=== PATIENT | female | born 1990 | race American Indian/Alaskan Native ===

== ENCOUNTER 2017-01-06 09:20 | Emergency (ER) | payer OTHER ==
[2017-01-06 09:31] VITALS: BMI 23.1
[2017-01-06 09:36] VITALS: TEMP 97.8
--- NOTE | 2017-01-06 10:17 | C.PDOC ---
Time Seen by Provider: 01/06/17 09:53 Chief Complaint (Nursing): GI Problem History Per: Patient Onset/Duration Of Symptoms: Days (2) Current Symptoms Are (Timing): Still Present Sick Contacts (Context): Family Member(s) (Daughter) Associated Symptoms: Myalgias, Diarrhea Severity: Moderate Recent travel outside of the [place]: No Additional History Per: Prior Records Past Medical History Reviewed: Historical Data, Nursing Documentation, Vital Signs Vital Signs: Last Vital Signs Temp 97.8 F 01/06/17 09:31 Pulse 73 01/06/17 09:31 Resp 18 01/06/17 09:31 BP 101/68 01/06/17 09:31 Pulse Ox 100 01/06/17 10:17 - Medical History PMH: No Chronic Diseases Surgical History: No Surg Hx Family History: States: Unknown Family Hx - Social History Hx Tobacco Use: No Hx Alcohol Use: No Hx Substance Use: No - Immunization History Hx Tetanus Toxoid Vaccination: No Hx Influenza Vaccination: Yes Hx Pneumococcal Vaccination: No Review Of Systems Except As Marked, All Systems Reviewed And Found Negative. Constitutional: Negative for: Fever, Weakness ENT: Negative for: Nose Congestion, Throat Pain Cardiovascular: Negative for: Chest Pain Respiratory: Negative for: Cough, Shortness of Breath Gastrointestinal: Positive for: Nausea, Diarrhea. Negative for: Vomiting, Abdominal Pain, Melena, Hematochezia, Hematemesis Genitourinary: Negative for: Dysuria Musculoskeletal: Negative for: Neck Pain, Back Pain Skin: Negative for: Rash Neurological: Negative for: Weakness, Numbness, Seizures, Altered Mental Status Physical Exam - Physical Exam Appears: Non-toxic, No Acute Distress Skin: Normal Color, Warm, Dry, No Rash Head: Atraumatic, Normacephalic Eye(s): bilateral: Normal Inspection, PERRL, EOMI Oral Mucosa: Moist Neck: Normal ROM, Supple Cardiovascular: Rhythm Regular Respiratory: Normal Breath Sounds, No Accessory Muscle Use Gastrointestinal/Abdominal: Soft, No Tenderness, No Distention Back: No CVA Tenderness Extremity: Normal ROM Neurological/Psych: Oriented x3, Normal Speech, Normal Cognition, Normal Motor, Normal Sensation ED Course And Treatment O2 Sat by Pulse Oximetry: 100 Pulse Ox Interpretation: Normal Progress Note: Pt feels much better and wants to go home. Reassessment Condition: Improved Disposition Counseled Patient/Family Regarding: Diagnosis, Need For Followup, Rx Given - Disposition Referrals: Fortino Pena MD [Staff Provider] - Disposition: HOME/ ROUTINE Disposition Time: 11:28 Condition: IMPROVED Additional Instructions: Drink plenty of fluids (Gatorade). Follow up with your doctor this week. Return to the ER if you develop vomiting, abdominal pain, fever, bloody stools, worsening of symptoms or if you have any other concerns. Prescriptions: Bismuth Subsalicylate [Pepto Bismol] 2 tab PO Q1 PRN #16 ctb PRN Reason: Diarrhea Instructions: Acute Diarrhea (ED) - Clinical Impression Clinical Impression: Diarrhea
[2017-01-06 11:33] VITALS: BP 115/76; PULSE 81; RESP 16; O2SAT 98
== END 2017-01-06 11:32 | disposition home or self-care (01) ==
LOC: C.ER 09:20
DX: R19.7 Diarrhea, unspecified (principal)

== ENCOUNTER 2017-01-27 09:06 | Emergency (ER) | payer OTHER ==
[2017-01-27 09:06] VITALS: BMI 23.1
[2017-01-27 09:26] VITALS: PULSE 74; RESP 18; TEMP 98.3; O2SAT 99
[2017-01-27 10:21] VITALS: BP 102/65
--- NOTE | 2017-01-27 11:49 | C.PDOC ---
History Of Present Illness 26 year old female presents to the ED with complaints of a sore throat, subjective fever, and dry cough for the past 3 days. Patient states it is difficult to swallow and denies chest pain, SOB, sick contact, or any other complaints at this time. Chief Complaint (Nursing): ENT Problem History Per: Patient History/Exam Limitations: no limitations Onset/Duration Of Symptoms: Days Current Symptoms Are (Timing): Still Present Location Of Pain: Throat Sick Contacts (Context): None Associated Symptoms: Fever, Sore Throat, Cough. denies: Sputum, Nasal Congestion, Nausea, Vomiting Ear Symptoms: Bilateral: None Severity: Mild Past Medical History Reviewed: Historical Data, Nursing Documentation, Vital Signs Vital Signs: Last Vital Signs Temp 98.3 F 01/27/17 09:23 Pulse 74 01/27/17 09:23 Resp 18 01/27/17 09:23 BP 102/65 01/27/17 10:20 Pulse Ox 99 01/27/17 11:53 - Medical History PMH: No Chronic Diseases Family History: States: Unknown Family Hx - Social History Hx Tobacco Use: No Hx Alcohol Use: No Hx Substance Use: No - Immunization History Hx Tetanus Toxoid Vaccination: No Hx Influenza Vaccination: Yes Hx Pneumococcal Vaccination: No Review Of Systems Except As Marked, All Systems Reviewed And Found Negative. Constitutional: Positive for: Fever ENT: Positive for: Throat Pain. Negative for: Ear Pain, Nose Congestion Cardiovascular: Negative for: Chest Pain Respiratory: Positive for: Cough. Negative for: Shortness of Breath, Sputum Gastrointestinal: Negative for: Vomiting Physical Exam - Physical Exam Appears: Non-toxic, No Acute Distress Skin: Normal Color, Warm, Dry Head: Atraumatic, Normacephalic Eye(s): bilateral: Normal Inspection Ear(s): Bilateral: Normal Nose: Normal, No Discharge Oral Mucosa: Moist Throat: Erythema, Exudate (+Mild exudate to the right tonsil), No Drooling Neck: Supple Lymphatic: Adenopathy (+Right lymphadenopathy) Chest: Symmetrical, No Deformity Cardiovascular: Rhythm Regular Respiratory: Normal Breath Sounds, No Accessory Muscle Use, No Rales, No Rhonchi , No Wheezing Extremity: Normal ROM Neurological/Psych: Oriented x3, Normal Speech, Normal Cognition ED Course And Treatment O2 Sat by Pulse Oximetry: 99 (Room air) Pulse Ox Interpretation: Normal Progress Note: Rx given and patient advised outpatient follow up. Disposition - Disposition Referrals: [facility] Connie Soraya, [Non-Staff] - Disposition: HOME/ ROUTINE Disposition Time: 10:00 Condition: GOOD Additional Instructions: Thank you for letting us take care of you today. Your provider was Dr. Farfan. You were treated for pharyngitis. The emergency medical care you received today was directed at your acute symptoms. If you were prescribed any medication, please fill it and take as directed. It may take several days for your symptoms to resolve. Return to the Emergency Department if your symptoms worsen, do not improve, or if you have any other problems. Please contact your doctor or call one of the physicians/clinics you have been referred to that are listed on the Patient Visit Information form that is included in your discharge packet. Bring any paperwork you were given at discharge with you along with any medications you are taking to your follow up visit. Our treatment cannot replace ongoing medical care by a primary care provider (PCP) outside of the emergency department. Thank you for allowing the [facility] team to be part of your care today. Follow up with your doctor in 2-3 days to be re-evaluated. Prescriptions: Ibuprofen [Motrin] 600 mg PO Q6 PRN #20 tab PRN Reason: Pain, Moderate (4-7) Azithromycin [Zithromax] 250 mg PO DAILY #6 tab Instructions: Pharyngitis (ED) Forms: Work Excuse - Clinical Impression Clinical Impression: Pharyngitis - Scribe Statement The provider has reviewed the documentation as recorded by the Scribe Daja Boyd. Provider Attestation: All medical record entries made by the Scribe were at my direction and personally dictated by me. I have reviewed the chart and agree that the record accurately reflects my personal performance of the history, physical exam, medical decision making, and the department course for this patient. I have also personally directed, reviewed, and agree with the discharge instructions and disposition.
== END 2017-01-27 10:22 | disposition home or self-care (01) ==
LOC: C.ER 09:06
DX: J02.9 Acute pharyngitis, unspecified (principal)

== ENCOUNTER 2017-02-07 10:46 | Emergency (ER) | payer OTHER ==
[2017-02-07 10:46] VITALS: BMI 23.1
[2017-02-07 10:58] VITALS: BP 101/67; PULSE 70; RESP 16; TEMP 98; O2SAT 100
--- NOTE | 2017-02-07 11:25 | C.PDOC ---
History Of Present Illness Pt c/o left lower back pain. Denies injury. Time Seen by Provider: 02/07/17 10:59 Chief Complaint (Nursing): Back Pain History Per: Patient Onset/Duration Of Symptoms: Days (2) Current Symptoms Are (Timing): Still Present Quality Of Discomfort: "Pain" Severity: Moderate Associated Symptoms: None Exacerbating Factor(s): Turning, Movement Additional History Per: Prior Records Past Medical History Reviewed: Historical Data, Nursing Documentation, Vital Signs Vital Signs: Last Vital Signs Temp 98.0 F 02/07/17 10:55 Pulse 70 02/07/17 10:55 Resp 16 02/07/17 10:55 BP 101/67 02/07/17 10:55 Pulse Ox 100 02/07/17 11:26 - Medical History PMH: No Chronic Diseases Surgical History: No Surg Hx Family History: States: Unknown Family Hx - Social History Hx Tobacco Use: No Hx Alcohol Use: No Hx Substance Use: No - Immunization History Hx Tetanus Toxoid Vaccination: No Hx Influenza Vaccination: Yes Hx Pneumococcal Vaccination: No Review Of Systems Except As Marked, All Systems Reviewed And Found Negative. Constitutional: Negative for: Fever, Weakness Cardiovascular: Negative for: Chest Pain Respiratory: Negative for: Shortness of Breath Gastrointestinal: Negative for: Vomiting, Abdominal Pain, Diarrhea Genitourinary: Negative for: Dysuria, Incontinence, Hematuria Musculoskeletal: Negative for: Neck Pain, Leg Pain Skin: Negative for: Rash Neurological: Negative for: Weakness, Numbness, Seizures, Altered Mental Status Physical Exam - Physical Exam Appears: Non-toxic, No Acute Distress Skin: Normal Color, Warm, Dry, No Rash Head: Atraumatic, Normacephalic Eye(s): bilateral: PERRL, EOMI Neck: Normal ROM, Supple Cardiovascular: Rhythm Regular Respiratory: Normal Breath Sounds, No Accessory Muscle Use Gastrointestinal/Abdominal: Soft, No Tenderness Back: No CVA Tenderness, No Vertebral Tenderness, Paraspinal Tenderness (left lower) Extremity: Normal ROM Extremity: Bilateral: Normal Color And Temperature Neurological/Psych: Oriented x3, Normal Motor, Normal Sensation ED Course And Treatment O2 Sat by Pulse Oximetry: 100 Pulse Ox Interpretation: Normal Reassessment Condition: Improved Disposition Counseled Patient/Family Regarding: Diagnosis, Need For Followup, Rx Given - Disposition Disposition: HOME/ ROUTINE Disposition Time: 11:46 Condition: IMPROVED Additional Instructions: Follow up with your doctor for further evaluation and treatment. Return to the ER if you develop weakness, numbness, abdominal pain, worsening of symptoms or if you have any other concerns. Prescriptions: Ibuprofen [Motrin Tab] 400 mg PO TID PRN #30 tab PRN Reason: Pain, Moderate (4-7) Instructions: Acute Low Back Pain (ED) - Clinical Impression Clinical Impression: Left low back pain
== END 2017-02-07 11:55 | disposition home or self-care (01) ==
LOC: C.ER 10:46
DX: M54.5 Low back pain (principal)

== ENCOUNTER 2017-04-12 09:03 | Emergency (ER) | payer OTHER ==
[2017-04-12 09:03] VITALS: BMI 23.1
[2017-04-12 09:13] VITALS: RESP 18; TEMP 98.4
[2017-04-12 09:53] LABS: RBC URINE 2 /hpf (0-3); URINE BILIRUBIN NEGATIVE (NEGATIVE); URINE BLOOD NEGATIVE (NEGATIVE); URINE COLOR Yellow (YELLOW); URINE GLUCOSE (UA) NORMAL (Normal); URINE KETONE NEGATIVE (NEGATIVE); URINE LEUKOCYTE ESTERASE 3+ Leu/uL (Negative); URINE PROTEIN NEGATIVE (NEGATIVE); URINE UROBILINOGEN NORMAL mg/dL (0.2-1.0); WBC URINE 15 /hpf (0-5)
[2017-04-12] MEDS ORDERED: cefTRIAXone IV 1 gm in Dextros 50 ML IV ONE (10:21)
--- NOTE | 2017-04-12 10:22 | C.PDOC ---
History Of Present Illness 26 y/o female presents to ED with complaints of intermittent sharp pelvic pain since yesterday. Patient denies n/v/d, dysuria, vaginal bleeding or discharge and denies concerns for stds. Patient reports recent antibiotic use for throat infection. No other complaints at this time. Time Seen by Provider: 04/12/17 09:31 Chief Complaint (Nursing): Abdominal Pain History Per: Patient History/Exam Limitations: no limitations Onset/Duration Of Symptoms: Days Quality Of Discomfort: Sharp Associated Symptoms: denies: Nausea, Vomiting, Diarrhea, Urinary Symptoms Past Medical History Reviewed: Historical Data, Nursing Documentation, Vital Signs Vital Signs: Last Vital Signs Temp 98.4 F 04/12/17 09:10 Pulse 75 04/12/17 11:14 Resp 18 04/12/17 11:14 BP 100/62 04/12/17 11:14 Pulse Ox 98 04/12/17 11:14 Family History: States: Unknown Family Hx - Social History Hx Tobacco Use: No Hx Alcohol Use: No Hx Substance Use: No - Immunization History Hx Tetanus Toxoid Vaccination: No Hx Influenza Vaccination: Yes Hx Pneumococcal Vaccination: No Review Of Systems Except As Marked, All Systems Reviewed And Found Negative. Constitutional: Negative for: Fever, Chills Gastrointestinal: Negative for: Nausea, Vomiting, Diarrhea Genitourinary: Positive for: Pelvic Pain. Negative for: Dysuria, Hematuria Skin: Negative for: Rash Physical Exam - Physical Exam Appears: No Acute Distress Skin: Warm, No Dry Head: Atraumatic, Normacephalic Cardiovascular: Rhythm Regular, No Murmur Respiratory: Normal Breath Sounds, No Rales, No Rhonchi, No Wheezing Gastrointestinal/Abdominal: Tenderness (Suprapubic Tenderness), No Guarding, No Rebound Pelvic: Vaginal Discharge (Moderate thick white discharge), Cervical Motion Tenderness (Mild), No Adnexal Tenderness Neurological/Psych: Oriented x3, Normal Speech ED Course And Treatment O2 Sat by Pulse Oximetry: 100 (RA) Pulse Ox Interpretation: Normal Medical Decision Making Medical Decision Making: Patient was discharged home with antibiotics and advised to follow up with OBGYN. 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 I have reviewed the chart and agree that the record accurately reflects my personal performance of the history, physical exam, medical decision making, and the department course for this patient. I have also personally directed, reviewed, and agree with the discharge instructions and disposition.
[2017-04-12] MEDS ORDERED: Naproxen 550 mg Tab PO STA (10:25)
[2017-04-12] MEDS ORDERED: cefTRIAXone (Rocephin) 250 mg Inj IM STA (10:29)
[2017-04-12] MEDS ORDERED: Naproxen 550 mg Tab PO ONE (10:37)
[2017-04-12 11:15] VITALS: BP 100/62; PULSE 75
[2017-04-12 11:41] VITALS: O2SAT 100
== END 2017-04-12 11:17 | disposition home or self-care (01) ==
LOC: C.ER 09:03
DX: N72 Inflammatory disease of cervix uteri (principal)
CPT/HCPCS: 81001; 96372; 99285; J0696

== ENCOUNTER 2017-12-16 10:25 | Emergency (ER) | payer OTHER ==
[2017-12-16 10:25] VITALS: BMI 23.1
[2017-12-16 10:50] VITALS: O2SAT 100
[2017-12-16 12:16] VITALS: BP 101/66; PULSE 97; RESP 18; TEMP 100.1
--- NOTE | 2017-12-16 12:49 | C.PDOC ---
History Of Present Illness 27 y/o female with generalized body aches, sore throat and cough since yesterday. HPI: Influenza Time Seen by Provider: 12/16/17 10:51 Chief Complaint: Flu-like Symptoms Past Medical History Vital Signs: Last Vital Signs Temp 100.1 F H 12/16/17 12:15 Pulse 97 H 12/16/17 12:15 Resp 18 12/16/17 12:15 BP 101/66 12/16/17 12:15 Pulse Ox 100 12/16/17 12:15 - Medical History PMH: Asthma Family History: States: Unknown Family Hx - Social History Hx Tobacco Use: No Hx Alcohol Use: No Hx Substance Use: No - Immunization History Hx Tetanus Toxoid Vaccination: No Hx Influenza Vaccination: Yes Hx Pneumococcal Vaccination: No Review Of Systems Constitutional: Positive for: Fever, Malaise. Negative for: Chills, Weakness, Weight loss ENT: Positive for: Throat Pain. Negative for: Ear Pain Cardiovascular: Negative for: Chest Pain, Palpitations Respiratory: Positive for: Cough. Negative for: Shortness of Breath Gastrointestinal: Negative for: Nausea, Vomiting, Abdominal Pain, Diarrhea Musculoskeletal: Positive for: Back Pain Skin: Negative for: Rash Neurological: Negative for: Weakness, Confusion Physical Exam - Physical Exam Appears: Non-toxic Skin: Normal Color Head: Atraumatic Eye(s): bilateral: PERRL Nose: Normal Oral Mucosa: Moist Neck: Normal, Supple Respiratory: Normal Breath Sounds Gastrointestinal/Abdominal: Normal Exam - ECG O2 Sat by Pulse Oximetry: 100 Disposition Counseled Patient/Family Regarding: Diagnosis, Need For Followup, Rx Given - Disposition Disposition: HOME/ ROUTINE Disposition Time: 12:43 Condition: STABLE Additional Instructions: Follow up with your doctor. Take medications as indicated. Return to the Emergency Department with any further concerns. Prescriptions: Ibuprofen [Motrin] 600 mg PO TID #15 tab Oseltamivir [Tamiflu] 1 cap PO BID #10 cap Instructions: Flu, Adult (DC) Forms: General Discharge Instructions, [facility] (Nauruan), Work Excuse - Clinical Impression Clinical Impression: Influenza-like illness, Influenza
== END 2017-12-16 12:48 | disposition home or self-care (01) ==
LOC: C.ER 10:25
DX: J11.1 Influenza due to unidentified influenza virus with other respiratory manifestations (principal)

== ENCOUNTER → 2017-12-18 13:26 | Emergency (ER) | payer OTHER ==
[2017-12-18 13:26] VITALS: BMI 23.1
== END | disposition left against medical advice (07) ==
LOC: C.ER 13:26
DX: Z02.89 Encounter for other administrative examinations (principal); M79.1 Myalgia